=== PATIENT | male | born 1980 | race Hispanic/Latino ===

== ENCOUNTER 2024-02-17 10:25 | Emergency (ER) | payer SELFPAY ==
[~2024-02-17] VITALS: Ht 177.8 cm; Wt 113.4 kg
[2024-02-17 10:26] VITALS: BP 156/106; PULSE 58; RESP 18; O2SAT 98
[2024-02-17] MEDS: cefTRIAXone 1G VIAL IVPB ONE (11:10)
[2024-02-17] MEDS: Solu-medROL 125MG VIAL IVP ONE (11:10)
[2024-02-17] MEDS: FAMOTIDINE 20MG VIAL IV ONE (11:10)
[2024-02-17] MEDS: DiphenhydrAMINE HCL 50 MG/ML VIAL IV ONE (11:10)
[2024-02-17 11:12] LABS: BASOPHILS # (AUTO) 0.04 K/uL (0.00-0.20); BASOPHILS % (AUTO) 0.7 % (0.0-5.0); EOSINOPHILS % (AUTO) 6.7 % (0.0-8.0); HEMATOCRIT 44.5 % (42-54); IMMATURE GRANULOCYTE ABSOLUTE 0.01 K/uL (0-1); LYMPHOCYTES # (AUTO) 2.1 K/uL (1.0-4.8); LYMPHOCYTES % (AUTO) 34.3 % (21.0-51.0); MEAN CORPUSCULAR HEMOGLOBIN 28.3 pg (27.0-33.0); MEAN CORPUSCULAR HGB CONC 33.3 g/dL (32.0-36.0); MEAN CORPUSCULAR VOLUME 85.1 fL (79-99); MONOCYTES # (AUTO) 0.5 K/uL (0.1-1.0); MONOCYTES % (AUTO) 7.5 % (3.0-13.0); NEUTROPHILS % (AUTO) 50.6 % (40.0-77.0); PLATELET COUNT (AUTO) 240 K/uL (130-400); RED BLOOD CELL COUNT(AUTO) 5.23 MIL/uL (4.50-6.20); RED CELL DISTRIBUTION WIDTH 13.1 % (11.0-15.5)
[2024-02-17 11:20] LABS: CREATININE 0.9 mg/dL (0.5-1.3); POTASSIUM 3.6 mmol/L (3.5-5.1)
[2024-02-17] MEDS ORDERED: CEPH500B PO (12:22)
[2024-02-17] MEDS ORDERED: FAMO-136 PO (12:22)
[2024-02-17] MEDS ORDERED: DIPH-1242 PO (12:22)
== END 2024-02-17 12:31 | disposition home or self-care (01) ==
LOC: EDH 10:25
DX: R21 Rash and other nonspecific skin eruption (principal); Z79.899 Other long term (current) drug therapy
CPT/HCPCS: 99284; 96374; 96375; 80048; 85025; 36415; J1200; J3490; J2919; J0696